=== PATIENT | female | born 1980 | race Caucasian/White ===

== ENCOUNTER 2016-11-05 20:24 | Emergency (ER) | payer BC ==
[~2016-11-05] VITALS: Ht 162.6 cm; Wt 68.0 kg
[2016-11-05 21:40] VITALS: BP 143/65
[2016-11-05 22:06] LABS: NEG OBC UR NEG; POS OBC UR POS
[2016-11-05 22:09] LABS: BILIRUBIN,URINE NEGATIVE (NEG); GLUCOSE,URINE NEGATIVE (NEG); NITRITE,URINE NEGATIVE (NEG); PROTEIN,URINE NEGATIVE (NEG-TRACE); UROBILINOGEN,URINE 0.2 mg/dL (0.2 mg/dL)
[2016-11-05 22:15] LABS: BACTERIA,URINE FEW /HPF (0-FEW); RBC,URINE 0 /HPF (0-2); SQUAMOUS EPITHELIAL CELL,UR MOD /LPF; WBC,URINE 0 /HPF (0-4)
[2016-11-05] MEDS ORDERED: KETOROLAC TROMETHAMINE 60 MG/2 ML SYRINGE. IM ONE (22:30)
--- NOTE | 2016-11-05 22:55 | RAD ---
PROCEDURE Abdomen and pelvis CT without contrast. HISTORY Right flank pain. TECHNIQUE Computed tomographic images of the abdomen and pelvis were obtained without contrast. One or more of the following individualized dose reduction techniques were utilized for this examination: 1. Automated exposure control; 2. Adjustment of the mA and/or kV according to patient size; 3. Use of iterative reconstruction technique. COMPARISON None. FINDINGS Evaluation of the lower thorax is unremarkable. There is slight fatty infiltration of the liver along the falciform ligament. The gallbladder is surgically absent. The pancreas is unremarkable. There is a splenule adjacent to an otherwise unremarkable spleen. The adrenal glands are unremarkable. There are 1 mm and 6 mm nonobstructing left renal stones. There is no evidence of obstructive uropathy. The appendix is surgically absent. There is no bowel obstruction. The uterus and ovaries are unremarkable. There is no pathologically enlarged lymph node. There is no suspicious osseous lesion. 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 IMPRESSION 1. Left nephrolithiasis. There is no evidence of right sided nephroureterolithiasis or obstructive uropathy. 2. No acute abdominal or pelvic finding. Electronically signed by: Mary Acevedo (Nov 05, 2016 22:54:16)
--- NOTE | 2016-11-05 23:06 | PHYS DOC ---
Past Medical History Past Medical History: Asthma, Kidney Stone, Migraines Past Surgical History: Appendectomy, Cholecystectomy Alcohol Use: None Drug Use: None Adult General Chief Complaint Chief Complaint: FLANK PAIN HPI HPI 36-year-old female who states she's having significant right sided flank pain that does radiate somewhat into her groin throughout the day. Patient denies any dysuria or hematuria. She denies any fever or chills. She states her pain was approximately a 6 out of 10 on the pain scale localized right flank region. Review of Systems Review of Systems Constitutional: Denies fever or chills [] Eyes: Denies change in visual acuity, redness, or eye pain [] HENT: Denies nasal congestion or sore throat [] Respiratory: Denies cough or shortness of breath [] Cardiovascular: No additional information not addressed in HPI [] GI: Has abdominal pain, denies nausea, denies vomiting, bloody stools or diarrhea [] : Denies dysuria or hematuria [] Musculoskeletal: Denies back pain or joint pain [] Integument: Denies rash or skin lesions [] Neurologic: Denies headache, focal weakness or sensory changes [] Endocrine: Denies polyuria or polydipsia [] Current Medications Current Medications Current Medications Medications (Trade) Dose Ordered Sig/Melissa Start Time Stop Time Status Last Admin Dose Admin Ketorolac Tromethamine (Toradol Im) 60 mg 1X ONCE 11/05/16 22:30 11/05/16 22:31 DC 11/05/16 22:48 60 MG Allergies Allergies Allergies Uncoded Allergies Type Severity Reaction Last Updated Verified chloraprep Allergy Mild 11/05/16 Physical Exam Physical Exam Constitutional: Well developed, well nourished, no acute distress, non-toxic appearance. [] HENT: Normocephalic, atraumatic, bilateral external ears normal, oropharynx moist, no oral exudates, nose normal. [] Eyes: PERRLA, EOMI, conjunctiva normal, no discharge. [] Neck: Normal range of motion, no tenderness, supple, no stridor. [] Cardiovascular:Heart rate regular rhythm, no murmur [] Lungs & Thorax: Bilateral breath sounds clear to auscultation [] Abdomen: Bowel sounds normal, soft, mild RLQ tenderness, no masses, no pulsatile masses. [] Skin: Warm, dry, no erythema, no rash. [] Back: No tenderness, right CVA tenderness. [] Extremities: No tenderness, no cyanosis, no clubbing, ROM intact, no edema. [] Neurologic: Alert and oriented X 3, normal motor function, normal sensory function, no focal deficits noted. [] Psychologic: Affect normal, judgement normal, mood normal. [] Current Patient Data Vital Signs Vital Signs Date Time Temp Pulse Resp B/P Pulse Ox O2 Delivery O2 Flow Rate FiO2 11/05/16 21:40 98.4 97 16 143/65 98 Room Air 98.4 Lab Values Laboratory Tests Test 11/05/16 21:08 11/05/16 23:05 Urine Collection Type Unknown Urine Color Yellow Urine Clarity Clear Urine pH 7.0 Urine Specific Roy <=1.005 Urine Protein Negativemg/dL (NEG-TRACE) Urine Glucose (UA) Negativemg/dL (NEG) Urine Ketones (Stick) Negativemg/dL (NEG) Urine Blood Negative (NEG) Urine Nitrite Negative (NEG) Urine Bilirubin Negative (NEG) Urine Urobilinogen Dipstick 0.2mg/dL (0.2 mg/dL) Urine Leukocyte Esterase Negative (NEG) Urine RBC 0/HPF (0-2) Urine WBC 0/HPF (0-4) Urine Squamous Epithelial Cells Mod/LPF Urine Bacteria Few/HPF (0-FEW) Urine Test Negative (NEG) Sodium Level 143mmol/L (136-145) Potassium Level 3.8mmol/L (3.5-5.1) Chloride Level 106mmol/L (98-107) Carbon Dioxide Level 26mmol/L (21-32) Anion Gap 11 (6-14) Blood Urea Nitrogen 7mg/dL (7-20) Creatinine 0.7mg/dL (0.6-1.0) Estimated GFR (Cockcroft-Gault) 95.2 Glucose Level 103mg/dL (70-99) H Calcium Level 8.9mg/dL (8.5-10.1) Laboratory Tests 11/05/16 23:05 EKG EKG [] Radiology/Procedures Radiology/Procedures CT of the abdomen/pelvis without IV contrast demonstrated the following: Evaluation of the lower thorax is unremarkable. There is slight fatty infiltration of the liver along the falciform ligament. The gallbladder is surgically absent. The pancreas is unremarkable. There is a splenule adjacent to an otherwise unremarkable spleen. The adrenal glands are unremarkable. There are 1 mm and 6 mm nonobstructing left renal stones. There is no evidence of obstructive uropathy. The appendix is surgically absent. There is no bowel obstruction. The uterus and ovaries are unremarkable. There is no pathologically enlarged lymph node. There is no suspicious osseous lesion. 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 Course & Med Decision Making Course & Med Decision Making Pertinent Labs and Imaging studies reviewed. (See chart for details) This 36-year-old female will be discharged she has a negative CT and negative blood work and urinalysis for any acute abnormality. Her pain was well- controlled department with Toradol. I counseled her to follow up closely with her primary care doctor for symptom resolution in the next few days. Dragon Disclaimer Dragon Disclaimer This electronic medical record was generated, in whole or in part, using a voice recognition dictation system. Departure Departure Impression: Primary Impression: Right flank pain Disposition: HOME, SELF-CARE Condition: STABLE Referrals: JAKUB CARTWRIGHT MD (PCP) Patient Instructions: Flank Pain, [id number] Additional Instructions: Please take your pain medication as prescribed. Drink plenty of fluids. Return to the ER if you develop any worsening of your symptoms. Follow with your doctor in the next 2-3 days. Scripts Hydrocodone/Apap 5-325 ([place] 5-325 Tablet)1 Each Tablet1 Tab PO PRN Q6HRS PRN PAIN #10 TAB Prov:TAVO FRANK DO 11/05/16 TAVO FRANK DO Nov 05, 2016 23:06
[2016-11-05 23:22] LABS: CALCIUM 8.9 mg/dL (8.5-10.1); CREATININE 0.7 mg/dL (0.6-1.0); GFR 95.2; POTASSIUM 3.8 mmol/L (3.5-5.1)
[2016-11-05] MEDS ORDERED: HYDR-971 PO (23:48)
== END 2016-11-06 00:03 | disposition home or self-care (01) ==
LOC: ER 20:24
DX: R10.31 Right lower quadrant pain (principal); G43.909 Migraine, unspecified, not intractable, without status migrainosus; J45.909 Unspecified asthma, uncomplicated; Z90.49 Acquired absence of other specified parts of digestive tract; Z87.442 Personal history of urinary calculi; Z88.8 Allergy status to other drugs, medicaments and biological substances
CPT/HCPCS: 36415; 74176; 80048; 81001; 81025; 96372; 99285; J1885